=== PATIENT | male | born 1950 | race Caucasian/White ===

== ENCOUNTER 2020-10-20 03:48 | Emergency (ER) | payer OTHER, MEDICARE ==
[~2020-10-20] VITALS: Ht 172.7 cm; Wt 69.1 kg
--- NOTE | 2020-10-20 04:11 | EKG ---
[address] [address] Test Date: 2020-10-20 Test Time: 03:55:28 Pat Name: GIANNA VORA Department: Room: Gender: M Type Rolling Machine Operator: : 1950 Requested By: COLTEN WARREN Order Number: [id number] Reading MD: Measurements Intervals [place] Rate: 98 P: [place]: QRS: -76 QRSD: 162 T: 105 QT: 372 QTc: 477 Interpretive Statements IRREGULAR RHYTHM, NO P-WAVE FOUND ABNORMAL LEFT AXIS DEVIATION RIGHT BUNDLE BRANCH BLOCK QRS(T) CONTOUR ABNORMALITY CONSISTENT WITH ANTEROSEPTAL INFARCT AGE UNDETERMINED ABNORMAL ECG RI6.02 No previous ECG available for comparison
--- NOTE | 2020-10-20 04:23 | PHYS DOC ---
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 Patient also drinks 3 to 4 glasses of wine nightly but no beer or hard liquor. Denies any other drug use. States he had about 3-1/2 glasses of red wine last night before going to bed. States that at midnight he woke up, felt nauseous and had an episode of vomiting that look like bright red blood. States he is never had anything like this before and denies any history of esophageal varices or liver damage. States that after throwing up he felt better and went back to bed. States that about an hour later the same thing happened. States that this happened 3 times in total. States that the last time he had any nausea or vomiting was about an hour before coming into the emergency department. States that when the nausea came and was vomiting he was having centralized chest pain but here in the emergency department it is about a 1. Denies any new dyspnea on exertion, orthopnea, PND or edema. Denies any history of VTE. Denies any recent illnesses, fevers, known ill contacts. (COLTEN WARREN MD) Review of Systems Review of Systems Review of systems otherwise unremarkable except noted in HPI (COLTEN WARREN MD) Current Medications Current Medications Current Medications Medications (Trade) Dose Ordered Sig/Liliam Start Time Stop Time Status Last Admin Dose Admin Fentanyl Citrate (Fentanyl 2ml Vial) 50 mcg 1X ONCE 10/20/20 04:00 10/20/20 04:01 UNV Iohexol (Omnipaque 350 Mg/ml) 100 ml 1X ONCE 10/20/20 04:15 10/20/20 04:16 UNV Lactated Ringer's 1,000 ml @ 1,000 mls/hr 1X ONCE 10/20/20 04:00 10/20/20 04:59 UNV (COLTEN WARREN MD) Physical Exam Physical Exam Constitutional: Well developed, well nourished, no acute distress, non-toxic appearance. [] HENT: Normocephalic, atraumatic, bilateral external ears normal, oropharynx moist, no oral exudates, nose normal. [] Eyes: conjunctiva normal, no discharge. [] Neck: Normal range of motion, no tenderness, supple, no stridor. [] Cardiovascular: Tachycardia, irregular rhythm Lungs & Thorax: Bilateral breath sounds clear to auscultation [] Abdomen: soft, no tenderness, no masses, no pulsatile masses. [] Skin: Warm, dry, no erythema, no rash. [] Back: No tenderness, no CVA tenderness. [] Extremities: No tenderness, no cyanosis, no clubbing, ROM intact, no edema. [] Neurologic: Alert and oriented X 3, normal motor function, normal sensory function, no focal deficits noted. [] Psychologic: Affect normal, judgement normal, mood normal. [] (COLTEN WARREN MD) EKG EKG Rate of 98, QRS of 162, QTc of 477, no STEMI, atrial fibrillation with right bundle branch block [] (COLTEN WARREN MD) Radiology/Procedures Radiology/Procedures [] (COLTEN WARREN MD) Impressions: EXAM: CT chest with contrast - pulmonary embolus protocol CLINICAL HISTORY: Reason: OMNI 350,100ML IV.Chest pain, hematemisis / Spl. Instructions: / History: . COMPARISON: None. TECHNIQUE: CT of the chest following the administration of intravenous contrast during the pulmonary arterial phase. Axial, coronal and sagittal reformatted images were generated including MIP images. ---PQRS compliance statement - One or more of the following individualized dose reduction techniques were utilized for this study: 1. Automated exposure control 2. Adjustment of the mA and/or kV according to patient size 3. Use of iterative reconstruction technique--- FINDINGS: CHEST: Diagnostic quality: Adequate. Pulmonary emboli: None seen Right heart strain: None Pulmonary arteries: Normal in caliber. Heart is not enlarged. No pericardial effusion. Coronary calcifications are seen. Aorta is not opacified with contrast although atherosclerotic calcifications are seen throughout. Thoracic aorta is grossly normal in caliber. Linear and patchy opacities lower lobes likely scarring/atelectasis. Emphysematous changes are seen bilaterally. Small hiatal hernia. Distal esophageal thickening. No mediastinal or hilar lymphadenopathy. Visualized thyroid is unremarkable. No axillary lymphadenopathy. Bones: Trace height loss of T12 and T6, age-indeterminate compression fractures or physiologic wedging. IMPRESSION: Examination is tailored for the evaluation for acute pulmonary embolus. Evaluation of the aorta and associated arterial structures is limited given pneumothorax. 1. No evidence for acute pulmonary embolus. 2. Trace height loss of T12 and T6, age-indeterminate compression fractures or physiologic wedging. 3. Background of emphysematous change. 4. Thickening of the distal esophagus, nonspecific, may be seen with esophagitis, and can be correlated with endoscopy if clinically indicated. Small hiatal hernia. EXAM: CT Abdomen and Pelvis with IV contrast CLINICAL HISTORY: Reason: OMNI 350,100ML IV.Chest pain, hematemisis / Spl. Instructions: / History: . COMPARISON: none TECHNIQUE: Helical CT of the abdomen and pelvis was performed following the administration of IV contrast during the portal venous phase. Axial, coronal and sagittal reformatted images were generated. ---PQRS compliance statement - One or more of the following individualized dose reduction techniques were utilized for this study: 1. Automated exposure control 2. Adjustment of the mA and/or kV according to patient size 3. Use of iterative reconstruction technique--- FINDINGS: Abdomen and pelvis: Hepatic hypoattenuation, likely fatty liver. Gallbladder is normal. No biliary d uct dilatation. Pancreas is grossly unremarkable. Spleen is normal in appearance. Adrenal glands are unremarkable. Symmetric nephrograms. Subcentimeter hypodense renal lesions bilaterally likely cystic but too small to accurately characterize. No hydronephrosis. No hydroureter. Marked distention of the bladder. Aorta is grossly normal in caliber with dense aortobiiliac atherosclerotic calcifications. No abdominal lymphadenopathy. No pelvic lymphadenopathy. No abdominal or pelvic ascites. Appendix is normal. Moderate colonic stool content is seen. No small or large bowel dilatation is seen. No bowel obstruction. High density material within the distal esophagus was not seen on the PE portion of the exam, possibly contrast extravasation. Luminal irregularity (series 6 image 18) possibly ulceration.s Bones: Height loss of the superior endplate of L4, age indeterminate compression fracture. Decreased bone mineral density. Degenerative changes of the spine particularly at the lumbosacral junction. IMPRESSION: Evaluation for active extravasation limited given portal venous phase of imaging. 1. High density material in the distal esophagus was not seen on prior CT, possibly from contrast extravasation or exuberant mucosal enhancement from esophagitis/gastritis. Esophageal thickening at this level possibly from esophagitis although luminal irregularity eccentric to the left may represent small ulceration. 2. Hepatic hypoattenuation, likely fatty liver. 3. Height loss of the superior endplate of L4, age indeterminate compression fracture Findings discussed with at 10/20/2020 5:56 AM. FOR INTERNAL CODING PURPOSES RESULT CODE: Electronically signed by: Felix Hdz MD (10/20/2020 5:58 AM) [facility] DICTATED AND SIGNED BY: FELIX HDZ MD DATE: 10/20/20546 CC: COLTEN WARREN MD; NON,STAFF ~MTH0 0 (MIKEY NOGUERA DO) Heart Score C/O Chest Pain: Yes HEART Score for Chest Pain: HEART Score for Chest Pain Response (Comments) Value History Slighlty/Non-Suspicious 0 ECG Nonspecific Repolarizatio 1 Age > 65 2 Risk Factors 1 or 2 Risk Factors 1 Total 4 Risk Factors: Risk Factors: DM, Current or recent (<one month) smoker, HTN, HLP, family history of CAD, obesity. Risk Scores: Risk Factors: DM, Current or recent (<one month) smoker, HTN, HLP, family history of CAD, obesity. (COLTEN WARREN MD) Course & Med Decision Making Course & Med Decision Making Patient is a 70-year-old male who presents with a chief complaint of hematemesis with pleuritic chest pain x3 Vital signs notable for tachycardia. Physical exam noted above. EKG noted a jairo and considerably abnormal with what appears to be atrial fibrillation with right bundle branch block. Patient states that he is supposed to carry around a copy of his EKG because it is so abnormal but forgot it and left it at home. First troponin normal. D- dimer elevated. Laboratory analysis notable for mild anion gap with normal bicarb. Gastric occult negative. CT pending. Second troponin pending. Patient care handed off to day team pending continued work-up. [] (COLTEN WARREN MD) Course & Med Decision Making The patient CT scan does show some enhancement at the distal esophagus. Extrava sation of contrast is in the differential. The patient's emesis was heme negative, so this seems less likely at this time. We will continue to monitor the patient and repeat a second troponin. The patient continues to feel well. He has had no further vomiting or complications. His repeat troponin and EKG are unremarkable. He is stable for discharge at this time. (MIKEY NOGUERA DO) Dragon Disclaimer Dragon Disclaimer This electronic medical record was generated, in whole or in part, using a voice recognition dictation system. (COLTEN WARREN MD) Departure Departure: Impression: Primary Impression: Chest pain Additional Impression: Nausea & vomiting Disposition: HOME / SELF CARE / HOMELESS Condition: STABLE Referrals: PCP,NO (PCP) Patient Instructions: Chest Pain (Nonspecific), [id number], Nausea and Vomiting, [id number] Scripts Ondansetron (ONDANSETRON ODT) 4 Mg Tab.rapdis 1 TAB PO PRN Q6-8HRS PRN for VOMITING, #16 TAB Prov: MIKEY NOGUERA DO 10/20/20 Problem Qualifiers COLTEN WARREN MD Oct 20, 2020 04:23 MIKEY NOGUERA DO Oct 20, 2020 06:10
[2020-10-20] MEDS ORDERED: IOHEXOL 350 MG/ML 100 ML VIAL. IV ONE (04:30)
[2020-10-20] MEDS ORDERED: CONTRAST GIVEN. MC PRN (04:30)
[2020-10-20] MEDS ORDERED: IV RINGERS SOLUTION,LACTATED 1,000 ML IV ONE (04:30)
[2020-10-20] MEDS ORDERED: METOCLOPRAMIDE HCL 10 MG/2 ML VIAL. ONE (04:30)
[2020-10-20] MEDS ORDERED: ONDANSETRON PF 4 MG/2 ML VIAL. ONE (04:30)
[2020-10-20 04:31] LABS: BASO # 0.1 x10^3/uL (0.0-0.2); BASO % 1 % (0-3); EOS % 0 % (0-3); HEMOGLOBIN 16.5 g/dL (13.0-17.5); LYMPH # 1.8 x10^3/uL (1.0-4.8); LYMPH % 25 % (24-48); MEAN CORPUSCULAR HEMOGLOBIN 35 pg (25-35); MEAN CORPUSCULAR HGB CONC 35 g/dL (31-37); MEAN CORPUSCULAR VOLUME 100 fL (79-100); MONO # 0.7 x10^3/uL (0.0-1.1); MONO % 10 % (0-9); NEUT # 4.7 x10^3uL (1.8-7.7); NEUT % 64 % (31-73); PLATELET COUNT 180 x10^3/uL (140-400); RED CELL DISTRIBUTION WIDTH 13.4 % (11.5-14.5); WHITE BLOOD COUNT 7.3 x10^3/uL (4.0-11.0)
[2020-10-20 04:44] LABS: CALCIUM 8.6 mg/dL (8.5-10.1); CREATININE 0.9 mg/dL (0.7-1.3); GFR 83.2
[2020-10-20 04:50] LABS: ALBUMIN 3.6 g/dL (3.4-5.0); ALBUMIN/GLOBULIN RATIO 0.9 (1.0-1.7); TOTAL BILIRUBIN 1.3 mg/dL (0.2-1.0); TOTAL PROTEIN 7.7 g/dL (6.4-8.2)
[2020-10-20] MEDS ORDERED: ONDANSETRON PF 4 MG/2 ML VIAL. IVP ONE (05:00)
[2020-10-20] MEDS ORDERED: METOCLOPRAMIDE HCL 10 MG/2 ML VIAL. IVP ONE (05:00)
[2020-10-20 05:18] LABS: GASTRIC OB PAT NEGATIVE (NEG)
--- NOTE | 2020-10-20 06:00 | RAD ---
EXAM: CT chest with contrast - pulmonary embolus protocol CLINICAL HISTORY: Reason: OMNI 350,100ML IV.Chest pain, hematemisis / Spl. Instructions: / History: . COMPARISON: None. TECHNIQUE: CT of the chest following the administration of intravenous contrast during the pulmonary arterial phase. Axial, coronal and sagittal reformatted images were generated including MIP images. ---PQRS compliance statement - One or more of the following individualized dose reduction techniques were utilized for this study: 1. Automated exposure control 2. Adjustment of the mA and/or kV according to patient size 3. Use of iterative reconstruction technique--- FINDINGS: CHEST: Diagnostic quality: Adequate. Pulmonary emboli: None seen Right heart strain: None Pulmonary arteries: Normal in caliber. Heart is not enlarged. No pericardial effusion. Coronary calcifications are seen. Aorta is not opacif ied with contrast although atherosclerotic calcifications are seen throughout. Thoracic aorta is fredrick sly normal in caliber. Linear and patchy opacities lower lobes likely scarring/atelectasis. Emphysematous changes are seen b ilaterally. Small hiatal hernia. Distal esophageal thickening. No mediastinal or hilar lymphadenopathy. Visualized thyroid is unremarkable. No axillary lymphadenopa thy. Bones: Trace height loss of T12 and T6, age-indeterminate compression fractures or physiologic wedgin g. IMPRESSION: Examination is tailored for the evaluation for acute pulmonary embolus. Evaluation of the aorta and a ssociated arterial structures is limited given pneumothorax. 1. No evidence for acute pulmonary embolus. 2. Trace height loss of T12 and T6, age-indeterminate compression fractures or physiologic wedging. 3. Background of emphysematous change. 4. Thickening of the distal esophagus, nonspecific, may be seen with esophagitis, and can be correla tru with endoscopy if clinically indicated. Small hiatal hernia. EXAM: CT Abdomen and Pelvis with IV contrast CLINICAL HISTORY: Reason: OMNI 350,100ML IV.Chest pain, hematemisis / Spl. Instructions: / History: . COMPARISON: none TECHNIQUE: Helical CT of the abdomen and pelvis was performed following the administration of IV cont rast during the portal venous phase. Axial, coronal and sagittal reformatted images were generated. ---PQRS compliance statement - One or more of the following individualized dose reduction techniques were utilized for this study: 1. Automated exposure control 2. Adjustment of the mA and/or kV according to patient size 3. Use of iterative reconstruction technique--- FINDINGS: Abdomen and pelvis: Hepatic hypoattenuation, likely fatty liver. Gallbladder is normal. No biliary duct dilatation. Pancr eas is grossly unremarkable. Spleen is normal in appearance. Adrenal glands are unremarkable. Symmetr ic nephrograms. Subcentimeter hypodense renal lesions bilaterally likely cystic but too small to accu rately characterize. No hydronephrosis. No hydroureter. Marked distention of the bladder. Aorta is grossly normal in caliber with dense aortobiiliac atherosclerotic calcifications. No abdomin al lymphadenopathy. No pelvic lymphadenopathy. No abdominal or pelvic ascites. Appendix is normal. Moderate colonic stool content is seen. No small or large bowel dilatation is see n. No bowel obstruction. High density material within the distal esophagus was not seen on the PE portion of the exam, possibl y contrast extravasation. Luminal irregularity (series 6 image 18) possibly ulceration.s Bones: Height loss of the superior endplate of L4, age indeterminate compression fracture. Decreased bone mineral density. Degenerative changes of the spine particularly at the lumbosacral junction. IMPRESSION: Evaluation for active extravasation limited given portal venous phase of imaging. 1. High density material in the distal esophagus was not seen on prior CT, possibly from contrast ex travasation or exuberant mucosal enhancement from esophagitis/gastritis. Esophageal thickening at thi s level possibly from esophagitis although luminal irregularity eccentric to the left may represent s mall ulceration. 2. Hepatic hypoattenuation, likely fatty liver. 3. Height loss of the superior endplate of L4, age indeterminate compression fracture Findings discussed with at 10/20/2020 5:56 AM. FOR INTERNAL CODING PURPOSES RESULT CODE: Electronically signed by: Felix Hdz MD (10/20/2020 5:58 AM) [facility]
--- NOTE | 2020-10-20 07:20 | EKG ---
[address] [address] Test Date: 2020-10-20 Test Time: 07:12:55 Pat Name: GIANNA VORA Department: Room: Gender: M Manager Cleaning: : 1950 Requested By: COLTEN WARREN Order Number: [id number] Reading MD: Measurements Intervals [place] Rate: 90 P: [place]: QRS: 269 QRSD: 156 T: 112 QT: 388 QTc: 479 Interpretive Statements IRREGULAR RHYTHM, NO P-WAVE FOUND VENTRICULAR PREMATURE COMPLEX(ES) ABNORMAL RIGHT SUPERIOR AXIS DEVIATION LEFT ANTERIOR FASCICULAR BLOCK NON SPECIFIC INTRAVENTRICULAR BLOCK CONSIDER RIGHT VENTRICULAR HYPERTROPHY QRS(T) CONTOUR ABNORMALITY CONSISTENT WITH ANTEROSEPTAL INFARCT AGE UNDETERMINED ABNORMAL ECG RI6.02 No previous ECG available for comparison
[2020-10-20 07:56] VITALS: BP 131/76
[2020-10-20] MEDS ORDERED: ONDA4TAB12 PO (07:59)
== END 2020-10-20 08:33 | disposition home or self-care (01) ==
LOC: ER 03:48
DX: R07.89 Other chest pain (principal); R11.2 Nausea with vomiting, unspecified
CPT/HCPCS: 36415; 71275; 74177; 80053; 82271; 83690; 83735; 84484; 85025; 85379; 85610; 85730; 93005; 96361; 96374; 96375; 99285; J2405; J2765; J3010; J7120; Q9967